=== PATIENT | male | born 1940 | race Caucasian/White ===

== ENCOUNTER 2021-10-06 15:35 | Inpatient (IN) | payer OTHER ==
[2021-10-06 16:22] VITALS: BMI 23.2
[2021-10-06] MEDS ORDERED: methylPREDNISolone NA SUCC 1000 MG/8 ML VIAL IVPB ONE (16:41)
[2021-10-06] MEDS ORDERED: methylPREDNISolone NA SUCC 125 MG/2 ML VIAL ONE (17:05)
[2021-10-06 18:22] LABS: BASO % 0.4 % (0-2.0); HEMATOCRIT 38.6 % (35.4-49); HEMOGLOBIN 13.2 GM/dL (11.7-16.9); LYMPH % 19.5 % (8-40); MCH 31.2 pg (25.7-33.7); MCHC 34.1 g/dl (32.0-35.9); MEAN CELL VOLUME 91.5 fl (80-96); MEAN PLT VOLUME 6.8 fl (7.5-11.1); MONO % 9.8 % (3.8-10.2); NEUT % 69.3 % (42.8-82.8); PLATELET COUNT 241 10^3/uL (134-434); RBC 4.22 M/mm3 (4.00-5.60); RDW 14.2 % (11.9-15.9); WHITE BLOOD COUNT 6.9 K/mm3 (4.0-10.0)
[2021-10-06 18:27] LABS: INR 1.68 (0.83-1.09); PROTHROMBIN TIME (PATIENT) 19.4 SEC (9.7-13.0)
[2021-10-06 18:30] LABS: ACTIVATED PTT 45.6 SECONDS (25.2-36.5)
[2021-10-06 18:41] LABS: CHLORIDE 101 mmol/L (98-107); SODIUM 139 mmol/L (136-145)
[2021-10-06 18:43] LABS: CALCIUM 9.6 mg/dL (8.5-10.1)
[2021-10-06 18:44] LABS: ALBUMIN 4.2 g/dl (3.4-5.0); ANION GAP 9 MMOL/L (8-16); BLOOD UREA NITROGEN 25.1 mg/dL (7-18); CO2 29 mmol/L (21-32); GLUCOSE,RANDOM 130 mg/dL (74-106)
[2021-10-06 18:47] LABS: CREATININE 1.3 mg/dL (0.55-1.3); SGOT/AST 18 U/L (15-37); SGPT/ALT 27 U/L (13-61)
[2021-10-06 18:49] LABS: BILIRUBIN,TOTAL 0.4 mg/dL (0.2-1); TOT PROT 7.5 g/dl (6.4-8.2)
[2021-10-06 18:50] LABS: ALK PHOS 52 U/L (45-117)
[2021-10-06 19:20] LABS: ERYTHROCYTE SEDIMENTATION RATE 12 mm/hr (0-20)
[2021-10-06] MEDS ORDERED: SODIUM ZIRCONIUM CYCLOSILICATE (LOKELMA) 5 GM PACKET PO SCH (19:30)
[2021-10-06] MEDS ORDERED: LOSARTAN POTASSIUM 50 MG TABLET PO ONE (21:39)
[2021-10-06] MEDS ORDERED: SODIUM ZIRCONIUM CYCLOSILICATE (LOKELMA) 5 GM PACKET ONE (22:04)
[2021-10-06] MEDS ORDERED: LOSARTAN POTASSIUM 50 MG TABLET ONE (22:04)
[2021-10-06] MEDS: INSULIN SLIDING SCALE (NOVOLOG) 1 VIAL SQ SCH (22:32)
[2021-10-07] MEDS: INSULIN SLIDING SCALE (NOVOLOG) 1 VIAL SQ SCH ×4 (06:09→21:39)
[2021-10-07] MEDS ORDERED: DEXTROSE 5%-0.45% SALINE 1,000 ML IV SCH (08:30)
[2021-10-07 09:36] LABS: BASO % 0.1 % (0-2.0); HEMATOCRIT 36.6 % (35.4-49); HEMOGLOBIN 12.5 GM/dL (11.7-16.9); LYMPH % 11.1 % (8-40); MCH 30.9 pg (25.7-33.7); MCHC 34.2 g/dl (32.0-35.9); MEAN CELL VOLUME 90.3 fl (80-96); NEUT % 87.8 % (42.8-82.8); PLATELET COUNT 211 10^3/uL (134-434); RBC 4.05 M/mm3 (4.00-5.60); RDW 13.6 % (11.9-15.9); WHITE BLOOD COUNT 8.4 K/mm3 (4.0-10.0)
[2021-10-07] MEDS: TIMOLOL 0.5% OPHTHALMIC SOL 5 ML BOTTLE OU SCH ×2 (09:44→21:38)
[2021-10-07] MEDS: DORZOLAMIDE 2% HCL OPHTHALMIC SOLUTION 10 ML BOTTLE OU SCH ×2 (09:45→21:39)
[2021-10-07] MEDS: methylPREDNISolone NA SUCC 1000 MG/8 ML VIAL IVPB SCH (09:48)
[2021-10-07 09:58] LABS: BLOOD UREA NITROGEN 26.3 mg/dL (7-18)
[2021-10-07 09:59] LABS: ALBUMIN 3.9 g/dl (3.4-5.0)
[2021-10-07 10:00] LABS: CALCIUM 9.3 mg/dL (8.5-10.1); MAGNESIUM 2.3 mg/dL (1.8-2.4)
[2021-10-07] MEDS ORDERED: PATIENT'S OWN MEDICATION (NON-FORMULARY) (Dorzolamide/Timolol/Pf [Dorzolamide-Timolol 2%-0 OU SCH (10:00)
[2021-10-07] MEDS ORDERED: predniSONE 20 MG TABLET (UD) PO SCH (10:00)
[2021-10-07] MEDS ORDERED: predniSONE 2.5 MG TABLET PO SCH ×2 (10:00)
[2021-10-07 10:01] LABS: PHOSPHOROUS 4.1 mg/dL (2.5-4.9)
[2021-10-07 10:02] LABS: CHOLESTEROL 110 mg/dL (50-200); TRIGLYCERIDES 66 mg/dL (0-150)
[2021-10-07 10:03] LABS: BILIRUBIN,TOTAL 0.5 mg/dL (0.2-1); LDL CHOLESTEROL (ONLY SJRH) 43 mg/dL (5-100); TOT PROT 7.1 g/dl (6.4-8.2)
[2021-10-07 10:05] LABS: HDL CHOLESTEROL 56 mg/dL (40-60)
[2021-10-07] MEDS: ASCORBIC ACID 500 MG TABLET (FP) PO SCH (10:05)
[2021-10-07] MEDS: CYANOCOBALAMIN 1,000 MCG TABLET (FP) PO SCH (10:05)
[2021-10-07] MEDS: CHOLECALCIFEROL (VIT D3) 1,000 UNIT (25 MCG) TABLET PO SCH (10:05)
[2021-10-07] MEDS: SODIUM ZIRCONIUM CYCLOSILICATE (LOKELMA) 10 GM PACKET PO SCH (10:06)
[2021-10-07] MEDS ORDERED: LIDOCAINE HCL 1%, 10 MG/ML (20ML VIAL) ONE (13:10)
[2021-10-07] MEDS ORDERED: LIDOCAINE HCL 1%, 10 MG/ML (20ML VIAL) INF ONE ×3 (13:56→14:41)
[2021-10-07] MEDS ORDERED: PROPOFOL 20 ML ONE (14:31)
[2021-10-07] MEDS ORDERED: MIDAZOLAM HCL 2 MG/2 ML SINGLE DOSE VIAL ONE (14:31)
[2021-10-07] MEDS ORDERED: ceFAZolin SODIUM 1 GM VIAL ONE (14:33)
[2021-10-07] MEDS ORDERED: ceFAZolin SODIUM 1 GM VIAL IVPB ONE (14:34)
[2021-10-07] MEDS ORDERED: SODIUM CHLORIDE 1,000 ML IV SCH (14:45)
[2021-10-07] MEDS ORDERED: RIVAROXABAN 20 MG TABLET PO SCH (18:00)
[2021-10-07] MEDS: ROSUVASTATIN CA 10 MG TABLET PO SCH (21:38)
[2021-10-07] MEDS: EZETIMIBE 10 MG TABLET (FP) PO SCH (21:38)
[2021-10-07] MEDS ORDERED: LOSARTAN POTASSIUM 50 MG TABLET PO SCH (22:00)
[2021-10-08] MEDS: INSULIN SLIDING SCALE (NOVOLOG) 1 VIAL SQ SCH ×4 (06:46→22:09)
[2021-10-08 09:10] LABS: HEMATOCRIT 35.1 % (35.4-49); HEMOGLOBIN 11.8 GM/dL (11.7-16.9); MCH 30.6 pg (25.7-33.7); MCHC 33.6 g/dl (32.0-35.9); MEAN CELL VOLUME 91.2 fl (80-96); PLATELET COUNT 224 10^3/uL (134-434); RBC 3.85 M/mm3 (4.00-5.60); RDW 14.1 % (11.9-15.9); WHITE BLOOD COUNT 16.5 K/mm3 (4.0-10.0)
[2021-10-08 09:31] LABS: CHLORIDE 106 mmol/L (98-107); SODIUM 141 mmol/L (136-145)
[2021-10-08 09:53] LABS: BLOOD UREA NITROGEN 26.8 mg/dL (7-18)
[2021-10-08 09:58] LABS: CALCIUM 9.3 mg/dL (8.5-10.1); MAGNESIUM 2.4 mg/dL (1.8-2.4)
[2021-10-08 10:01] LABS: ALBUMIN 3.4 g/dl (3.4-5.0); ANION GAP 6 MMOL/L (8-16); CO2 28 mmol/L (21-32); GLUCOSE,RANDOM 153 mg/dL (74-106); PHOSPHOROUS 3.7 mg/dL (2.5-4.9)
[2021-10-08 10:02] LABS: SGOT/AST 16 U/L (15-37); SGPT/ALT 19 U/L (13-61)
[2021-10-08 10:03] LABS: BILIRUBIN,TOTAL 0.4 mg/dL (0.2-1)
[2021-10-08 10:04] LABS: ALK PHOS 43 U/L (45-117); TOT PROT 6.2 g/dl (6.4-8.2)
[2021-10-08 10:28] LABS: ANISOCYTOSIS 1+; MACROCYTOSIS 0
[2021-10-08] MEDS: CYANOCOBALAMIN 1,000 MCG TABLET (FP) PO SCH (11:11)
[2021-10-08] MEDS: ASCORBIC ACID 500 MG TABLET (FP) PO SCH (11:11)
[2021-10-08] MEDS: CHOLECALCIFEROL (VIT D3) 1,000 UNIT (25 MCG) TABLET PO SCH (11:11)
[2021-10-08] MEDS: methylPREDNISolone NA SUCC 1000 MG/8 ML VIAL IVPB SCH (11:11)
[2021-10-08] MEDS: DORZOLAMIDE 2% HCL OPHTHALMIC SOLUTION 10 ML BOTTLE OU SCH ×2 (11:36→22:01)
[2021-10-08] MEDS: TIMOLOL 0.5% OPHTHALMIC SOL 5 ML BOTTLE OU SCH ×2 (11:36→22:01)
[2021-10-08] MEDS: SODIUM ZIRCONIUM CYCLOSILICATE (LOKELMA) 10 GM PACKET PO SCH (11:38)
[2021-10-08] MEDS ORDERED: INSULIN (NOVOLOG) ASPART 100 UNITS/ML 10ML VIAL ONE ×2 (12:58→22:02)
[2021-10-08] MEDS ORDERED: RIVAROXABAN 20 MG TABLET PO SCH (18:00)
[2021-10-08] MEDS: PRESERVISION AREDS PO SCH (19:34)
[2021-10-08] MEDS: ICOSAPENT ETHYL PO SCH (19:35)
[2021-10-08] MEDS: ROSUVASTATIN CA 10 MG TABLET PO SCH (22:01)
[2021-10-08] MEDS: EZETIMIBE 10 MG TABLET (FP) PO SCH (22:01)
[2021-10-08 22:16] VITALS: RESP 20
[2021-10-09 06:24] VITALS: BP 121/68; PULSE 50; TEMP 97.4
[2021-10-09] MEDS: INSULIN SLIDING SCALE (NOVOLOG) 1 VIAL SQ SCH ×2 (06:35→11:10)
[2021-10-09 09:17] LABS: HEMATOCRIT 36.1 % (35.4-49); HEMOGLOBIN 12.3 GM/dL (11.7-16.9); MCH 30.8 pg (25.7-33.7); MEAN CELL VOLUME 90.7 fl (80-96); PLATELET COUNT 240 10^3/uL (134-434); RBC 3.98 M/mm3 (4.00-5.60); RDW 14.1 % (11.9-15.9); WHITE BLOOD COUNT 20.2 K/mm3 (4.0-10.0)
[2021-10-09 09:19] LABS: CALCIUM 9.1 mg/dL (8.5-10.1)
[2021-10-09 09:20] LABS: BLOOD UREA NITROGEN 27.9 mg/dL (7-18); MAGNESIUM 2.3 mg/dL (1.8-2.4)
[2021-10-09] MEDS ORDERED: predniSONE 20 MG TABLET (UD) PO SCH (10:00)
[2021-10-09] MEDS ORDERED: LOSARTAN POTASSIUM 50 MG TABLET PO SCH (10:00)
[2021-10-09] MEDS: CYANOCOBALAMIN 1,000 MCG TABLET (FP) PO SCH (11:04)
[2021-10-09] MEDS: ASCORBIC ACID 500 MG TABLET (FP) PO SCH (11:05)
[2021-10-09] MEDS: CHOLECALCIFEROL (VIT D3) 1,000 UNIT (25 MCG) TABLET PO SCH (11:05)
[2021-10-09] MEDS: TIMOLOL 0.5% OPHTHALMIC SOL 5 ML BOTTLE OU SCH (11:05)
[2021-10-09] MEDS: DORZOLAMIDE 2% HCL OPHTHALMIC SOLUTION 10 ML BOTTLE OU SCH (11:06)
[2021-10-09] MEDS ORDERED: INSULIN (NOVOLOG) ASPART 100 UNITS/ML 10ML VIAL ONE (11:08)
[2021-10-09 11:40] LABS: ANISOCYTOSIS 0; HELMET CELLS 0; HOWELL-JOLLY BODIES 0; MACROCYTOSIS 0; OVALOCYTE 0; ROULEAU 0; SICKELED CELLS 0; TARGET CELLS 0; TEAR DROP CELLS 0; TOXIC GRANULATION 0
== END 2021-10-09 15:02 | disposition home or self-care (01) | DRG 515 ==
LOC: JER 15:35 → JERBED 18:41 → J8W 10-07 00:02
PROVIDERS: ADMIT Internal Medicine; ATTEND Internal Medicine
PROC: 3E00XBZ Introduction of Anesthetic Agent into Skin and Mucous Membranes, External Approach (ICD-10-PCS; 2021-10-07)
PROC: 03BS0ZX Excision of Right Temporal Artery, Open Approach, Diagnostic (ICD-10-PCS; principal; 2021-10-07 16:00)
DX: M31.6 Other giant cell arteritis (principal); U07.1 COVID-19; I10 Essential (primary) hypertension; E11.65 Type 2 diabetes mellitus with hyperglycemia; E78.5 Hyperlipidemia, unspecified; E87.5 Hyperkalemia; H53.8 Other visual disturbances; R42 Dizziness and giddiness; H26.9 Unspecified cataract
CPT/HCPCS: 36415; 70551-TC; 80048; 80053; 80061; 82550; 82962; 83036; 83735; 84100; 85025; 85379; 85610; 85651; 85730; 86140; 86850; 86900; 86901; 88305-TC; 93005; 93010; 99285-25; C9803-CS; U0003; U0005

== ENCOUNTER 2023-07-31 20:48 | Inpatient (IN) | payer OTHER ==
[2023-07-31 21:10] VITALS: BMI 19.8
[2023-07-31] MEDS: SODIUM CHLORIDE FOR INHALATION 3 ML VIAL.NEB IH ONE (22:26)
[2023-07-31] MEDS: CEFTRIAXONE 1 GM in DEXTROSE 5%-WATER - 100 ML IVPB ONE (22:26)
[2023-07-31] MEDS: AZITHROMYCIN IVPB 500 MG in DEXTROSE 5%-WATER - 250 ML IVPB ONE (22:26)
[2023-07-31] MEDS: ACETAMINOPHEN 1000 MG/100 ML BAG IVPB ONE (22:27)
[2023-07-31 22:29] LABS: BASO % 0.1 % (0-2.0); EOS % 0.2 % (0-4.5); HEMATOCRIT 40.1 % (35.4-49); HEMOGLOBIN 13.6 GM/dL (11.7-16.9); LYMPH % 7.5 % (8-40); MCH 30.9 pg (25.7-33.7); MEAN CELL VOLUME 90.7 fl (80-96); MONO % 10.2 % (3.8-10.2); PLATELET COUNT 177 10^3/uL (134-434); RBC 4.42 M/mm3 (4.00-5.60); RDW 15.7 % (11.9-15.9); WHITE BLOOD COUNT 12.9 K/mm3 (4.0-10.0)
[2023-07-31] MEDS ORDERED: ACETAMINOPHEN INJECTION 100 ML IVPB ONE (22:29)
[2023-07-31] MEDS ORDERED: AZITHROMYCIN IVPB 500 MG/250 ML BAG IVPB ONE (22:29)
[2023-07-31] MEDS ORDERED: CEFTRIAXONE 1 GM/50 ML BAG ONE (22:29)
[2023-07-31 22:47] LABS: POTASSIUM 4.1 mmol/L (3.5-5.1)
[2023-07-31 22:49] LABS: CALCIUM 9.2 mg/dL (8.5-10.1)
[2023-07-31 22:50] LABS: ALBUMIN 3.7 g/dl (3.4-5.0); BLOOD UREA NITROGEN 13.4 mg/dL (7-18); MAGNESIUM 1.8 mg/dL (1.8-2.4)
[2023-07-31 22:53] LABS: CREATININE 0.8 mg/dL (0.55-1.3)
[2023-07-31 22:54] LABS: TOT PROT 7.3 g/dl (6.4-8.2)
[2023-07-31 22:55] LABS: BILIRUBIN,TOTAL 1.1 mg/dL (0.2-1)
[2023-08-01] MEDS: ALBUTEROL SO4 2.5/IPRATROPIUM 0.5 INH SOL 3 ML VIAL.NEB. NEB SCH (07:21)
[2023-08-01 08:14] LABS: BASO % 0.3 % (0-2.0); EOS % 0.5 % (0-4.5); HEMATOCRIT 37.1 % (35.4-49); HEMOGLOBIN 12.6 GM/dL (11.7-16.9); LYMPH % 9.5 % (8-40); MCH 30.9 pg (25.7-33.7); MEAN CELL VOLUME 90.8 fl (80-96); MEAN PLT VOLUME 7.2 fl (7.5-11.1); MONO % 11.5 % (3.8-10.2); NEUT % 78.2 % (42.8-82.8); PLATELET COUNT 151 10^3/uL (134-434); RBC 4.09 M/mm3 (4.00-5.60); RDW 15.3 % (11.9-15.9); WHITE BLOOD COUNT 11.1 K/mm3 (4.0-10.0)
[2023-08-01 08:28] LABS: POTASSIUM 3.8 mmol/L (3.5-5.1)
[2023-08-01 08:35] LABS: PHOSPHOROUS 3.1 mg/dL (2.5-4.9)
[2023-08-01] MEDS ORDERED: ACETAMINOPHEN 325 MG TABLET (FP) PO PRN (08:36)
[2023-08-01 08:37] LABS: BLOOD UREA NITROGEN 13.1 mg/dL (7-18); TOT PROT 6.1 g/dl (6.4-8.2)
[2023-08-01 08:38] LABS: ALBUMIN 2.9 g/dl (3.4-5.0); CREATININE 0.6 mg/dL (0.55-1.3)
[2023-08-01 08:41] LABS: CALCIUM 8.2 mg/dL (8.5-10.1)
[2023-08-01 08:42] LABS: MAGNESIUM 1.8 mg/dL (1.8-2.4)
[2023-08-01 08:48] LABS: BILIRUBIN,TOTAL 1.1 mg/dL (0.2-1)
[2023-08-01] MEDS ORDERED: ALBUTEROL SO4 2.5/IPRATROPIUM 0.5 INH SOL 3 ML VIAL.NEB. NEB PRN (10:44)
[2023-08-01] MEDS: LOSARTAN POTASSIUM 25 MG TABLET PO SCH (10:46)
[2023-08-01] MEDS: APIXABAN 2.5 MG TABLET PO SCH (10:46)
[2023-08-01] MEDS: CEFTRIAXONE 1 GM in DEXTROSE 5%-WATER - 50 ML IVPB SCH (10:46)
[2023-08-01] MEDS: SODIUM CHLORIDE 1,000 ML IV SCH (10:47)
[2023-08-01] MEDS ORDERED: PATIENT'S OWN MEDICATION (NON-FORMULARY) (Dorzolamide/Timolol/Pf [Dorzolamide-Timolol 2%-0 OP SCH (11:19)
[2023-08-01] MEDS ORDERED: PATIENT'S OWN MEDICATION (NON-FORMULARY) (Dorzolamide/Timolol/Pf [Dorzolamide-Timolol 2%-0 OU SCH (11:25)
[2023-08-01] MEDS: AZITHROMYCIN 500 MG TABLET PO SCH (13:04)
[2023-08-01] MEDS: guaiFENesin 600 MG TABLET.ER (FP) PO SCH (13:05)
[2023-08-01] MEDS: DORZOLAMIDE 2% HCL OPHTHALMIC SOLUTION 10 ML BOTTLE OU SCH (13:13)
[2023-08-01] MEDS: TIMOLOL 0.5% OPHTHALMIC SOL 5 ML BOTTLE OU SCH (13:13)
[2023-08-01] MEDS: PATIENT'S OWN MEDICATION (NON-FORMULARY) (Dorzolamide/Timolol/Pf [Dorzolamide-Timolol 2%-0 OP SCH (14:04)
[2023-08-01] MEDS: guaiFENesin 200 MG/10 ML 10 ML UNIT-DOSE CUPS PO PRN (18:46)
[2023-08-01] MEDS: PATIENT'S OWN MEDICATION (NON-FORMULARY) (Icosapent Ethyl [Vascepa] 1 GM Capsule) PO SCH (21:24)
[2023-08-01] MEDS: ROSUVASTATIN CA 10 MG TABLET PO SCH (21:27)
[2023-08-02 06:51] LABS: BASO % 0.2 % (0-2.0); EOS % 0.8 % (0-4.5); HEMATOCRIT 37.1 % (35.4-49); HEMOGLOBIN 12.4 GM/dL (11.7-16.9); LYMPH % 13.6 % (8-40); MCH 30.7 pg (25.7-33.7); MCHC 33.6 g/dl (32.0-35.9); MEAN CELL VOLUME 91.6 fl (80-96); MEAN PLT VOLUME 6.9 fl (7.5-11.1); MONO % 13.7 % (3.8-10.2); NEUT % 71.7 % (42.8-82.8); PLATELET COUNT 185 10^3/uL (134-434); RBC 4.05 M/mm3 (4.00-5.60); RDW 15.5 % (11.9-15.9); WHITE BLOOD COUNT 9.6 K/mm3 (4.0-10.0)
[2023-08-02 07:09] LABS: POTASSIUM 3.8 mmol/L (3.5-5.1)
[2023-08-02 07:11] LABS: ALBUMIN 2.9 g/dl (3.4-5.0); CALCIUM 8.9 mg/dL (8.5-10.1)
[2023-08-02 07:12] LABS: BLOOD UREA NITROGEN 12.7 mg/dL (7-18)
[2023-08-02 07:15] LABS: CREATININE 0.8 mg/dL (0.55-1.3)
[2023-08-02 07:19] LABS: BILIRUBIN,TOTAL 0.7 mg/dL (0.2-1)
[2023-08-02] MEDS: methylPREDNISolone NA SUCC 40 MG/1 ML VIAL IVPUSH SCH (12:52)
[2023-08-02] MEDS: BUDESONIDE/FORMETEROL FUMARATE 160/4.5 mcg INHALER IH SCH (13:07)
[2023-08-02] MEDS: SODIUM CHLORIDE 1,000 ML IV SCH (14:32)
[2023-08-03 08:30] LABS: EOS % 0.1 % (0-4.5); HEMATOCRIT 35.4 % (35.4-49); LYMPH % 12.5 % (8-40); MCH 30.7 pg (25.7-33.7); MCHC 33.9 g/dl (32.0-35.9); MEAN CELL VOLUME 90.3 fl (80-96); MEAN PLT VOLUME 6.9 fl (7.5-11.1); MONO % 6.8 % (3.8-10.2); NEUT % 80.6 % (42.8-82.8); PLATELET COUNT 225 10^3/uL (134-434); RBC 3.92 M/mm3 (4.00-5.60); RDW 15.2 % (11.9-15.9); WHITE BLOOD COUNT 5.8 K/mm3 (4.0-10.0)
[2023-08-03 08:59] LABS: POTASSIUM 5.1 mmol/L (3.5-5.1)
[2023-08-03 09:02] LABS: BLOOD UREA NITROGEN 18.4 mg/dL (7-18)
[2023-08-03 09:05] LABS: CREATININE 0.8 mg/dL (0.55-1.3)
[2023-08-03 09:07] LABS: BILIRUBIN,TOTAL 0.8 mg/dL (0.2-1); TOT PROT 6.5 g/dl (6.4-8.2)
[2023-08-04 08:25] LABS: POTASSIUM 4.5 mmol/L (3.5-5.1)
[2023-08-04 08:30] LABS: BASO % 0.1 % (0-2.0); HEMATOCRIT 33.7 % (35.4-49); HEMOGLOBIN 11.2 GM/dL (11.7-16.9); LYMPH % 6.4 % (8-40); MCH 30.3 pg (25.7-33.7); MCHC 33.3 g/dl (32.0-35.9); MEAN CELL VOLUME 90.9 fl (80-96); MEAN PLT VOLUME 6.9 fl (7.5-11.1); MONO % 5.6 % (3.8-10.2); NEUT % 87.9 % (42.8-82.8); PLATELET COUNT 244 10^3/uL (134-434); RDW 15.4 % (11.9-15.9); WHITE BLOOD COUNT 12.2 K/mm3 (4.0-10.0)
[2023-08-04 08:33] LABS: CALCIUM 8.8 mg/dL (8.5-10.1)
[2023-08-04 08:34] LABS: BLOOD UREA NITROGEN 23.8 mg/dL (7-18)
[2023-08-04 08:35] LABS: CREATININE 0.7 mg/dL (0.55-1.3)
[2023-08-04 08:36] LABS: BILIRUBIN,TOTAL 0.3 mg/dL (0.2-1); TOT PROT 6.2 g/dl (6.4-8.2)
[2023-08-04 22:29] VITALS: RESP 18
[2023-08-05 07:08] VITALS: BP 123/79; PULSE 74; TEMP 97.7
[2023-08-05 07:40] LABS: BASO % 0.1 % (0-2.0); HEMATOCRIT 33.9 % (35.4-49); HEMOGLOBIN 11.2 GM/dL (11.7-16.9); LYMPH % 6.1 % (8-40); MCH 29.9 pg (25.7-33.7); MCHC 33.1 g/dl (32.0-35.9); MEAN CELL VOLUME 90.2 fl (80-96); MEAN PLT VOLUME 6.5 fl (7.5-11.1); MONO % 7.4 % (3.8-10.2); NEUT % 86.4 % (42.8-82.8); PLATELET COUNT 260 10^3/uL (134-434); RBC 3.76 M/mm3 (4.00-5.60); RDW 15.3 % (11.9-15.9)
[2023-08-05 07:57] LABS: POTASSIUM 4.8 mmol/L (3.5-5.1)
[2023-08-05 08:03] LABS: CALCIUM 9.4 mg/dL (8.5-10.1)
[2023-08-05 08:04] LABS: BLOOD UREA NITROGEN 23.4 mg/dL (7-18)
[2023-08-05 08:07] LABS: CREATININE 0.9 mg/dL (0.55-1.3)
[2023-08-05 08:09] LABS: BILIRUBIN,TOTAL 0.3 mg/dL (0.2-1); TOT PROT 6.1 g/dl (6.4-8.2)
== END 2023-08-05 10:53 | disposition home health service (06) | DRG 194 ==
LOC: JER 20:48 → JERBED 23:12 → OBSVTOIN 23:15 → J7W 08-01 01:11
PROVIDERS: ADMIT Internal Medicine; ATTEND Internal Medicine
DX: J18.9 Pneumonia, unspecified organism (principal); E44.0 Moderate protein-calorie malnutrition; E87.1 Hypo-osmolality and hyponatremia; Z68.1 Body mass index [BMI] 19.9 or less, adult; I10 Essential (primary) hypertension; E78.5 Hyperlipidemia, unspecified; I48.91 Unspecified atrial fibrillation
CPT/HCPCS: 0241U-QW; 36415; 71045-TC-FY; 71250-TC; 80053; 83735; 84100; 84484; 85025; 87040; 87070; 87081; 87205; 87899; 93005; 93010; 94010; 94640; 97116-GP; 97162-GP; 99285-25; G0378; J0131

== ENCOUNTER 2023-12-26 04:25 | Day surgery (SDC) | payer OTHER ==
[2023-12-26] MEDS ORDERED: mitoMYcin 40 MG/50 ML DISP.SYRIN (FOR OR USE) IC ONE (13:30)
[2023-12-26] MEDS ORDERED: GLYCOPYRROLATE 0.2 MG/1 ML VIAL ONE (16:38)
[2023-12-26] MEDS ORDERED: ETOMIDATE 20 MG/10 ML VIAL IVPUSH ONE (16:38)
[2023-12-26] MEDS ORDERED: PROPOFOL 20 ML ONE (16:38)
[2023-12-26] MEDS ORDERED: ATROPINE SO4 0.4 MG/1 ML VIAL ONE (16:38)
[2023-12-26] MEDS ORDERED: ePHEDrine SULFATE 50 MG/1 ML AMPULE ONE (16:40)
[2023-12-26] MEDS: ceFAZolin SODIUM 1 GM VIAL IVPB ONE ×2 (16:59)
[2023-12-26] MEDS ORDERED: DEXTROSE 5%-0.45% SALINE 1,000 ML IV SCH (17:15)
[2023-12-26] MEDS ORDERED: LACTATED RINGERS SOLUTION 1,000 ML IV SCH (17:45)
[2023-12-26 18:50] VITALS: RESP 20; TEMP 97.3
[2023-12-26 20:17] VITALS: BP 125/79; PULSE 75
== END 2023-12-26 20:05 | disposition home or self-care (01) ==
LOC: JASU-SURG 04:25
PROVIDERS: ATTEND Urology
PROC: 0TBB8ZZ Excision of Bladder, Via Natural or Artificial Opening Endoscopic (ICD-10-PCS; principal; 2023-12-26 14:30)
DX: C67.9 Malignant neoplasm of bladder, unspecified (principal); I48.0 Paroxysmal atrial fibrillation; I10 Essential (primary) hypertension; E11.9 Type 2 diabetes mellitus without complications; E55.9 Vitamin D deficiency, unspecified; M35.3 Polymyalgia rheumatica; Z85.46 Personal history of malignant neoplasm of prostate
CPT/HCPCS: 82962; 88307-TC; 88341-TC; 88342-TC; 94760